=== PATIENT | female | born 1980 | race Caucasian/White ===

== ENCOUNTER 2017-01-23 10:24 | Emergency (ER) | payer OTHER ==
[~2017-01-23] VITALS: Ht 167.6 cm; Wt 72.6 kg
[~2017-01-23 10:24] MED LIST: BENTYL 20 MG TA20 M1 PO; CIPRO500 MG PO; CYTOMEL 25 MCG25 MC1; LEVOTHYROXINE; TRAMADOL; TRAZODONE; ZANAFLEX4 MG; ZOFRAN ODT4 MG PO
[2017-01-23 10:55] VITALS: BP 122/82
[2017-01-23] MEDS ORDERED: DOXYCYCLINE 10100 MG PO (11:18)
== END 2017-01-23 18:30 | disposition home or self-care (01) ==
LOC: ER 10:24
DX: L02.214 Cutaneous abscess of groin (principal); E03.9 Hypothyroidism, unspecified; F10.99 Alcohol use, unspecified with unspecified alcohol-induced disorder; Z88.5 Allergy status to narcotic agent; Z88.1 Allergy status to other antibiotic agents